=== PATIENT | female | born 1980 | race Caucasian/White ===

== ENCOUNTER 2016-12-09 19:11 | Emergency (ER) | payer BC ==
[~2016-12-09] VITALS: Ht 170.2 cm; Wt 68.2 kg
[~2016-12-09 19:11] MED LIST: AMOXICILLIN875 MG PO; ENDOCET 5-3251 EACH PO; MOTRIN800 MG PO; NATALCARE RX1 TABLE1 PO
[2016-12-09] MEDS ORDERED: SKELAXIN800 MG PO (20:56)
[2016-12-09] MEDS ORDERED: LIDODERM 5% P1 PATCH TD (20:56)
[2016-12-09] MEDS ORDERED: NEURONTIN100 MG PO (20:56)
[2016-12-09 22:09] VITALS: BP 143/67
== END 2016-12-09 22:21 | disposition home or self-care (01) ==
LOC: EME 19:11
DX: M54.41 Lumbago with sciatica, right side (principal); M54.16 Radiculopathy, lumbar region
CPT/HCPCS: 99281; 99284; J1885; J3010; J7030